=== PATIENT | male | born 1945 | race Caucasian/White ===

== ENCOUNTER 2016-10-02 12:25 | Emergency (ER) | payer MEDICARE ==
[~2016-10-02] VITALS: Ht 185.4 cm; Wt 118.2 kg
[2016-10-02 12:30] VITALS: BP 149/98; PULSE 83; RESP 15; O2SAT 97
--- NOTE | 2016-10-02 12:32 | ED.REPORT ---
HPI-Abd Pain M 40 and Over Date of Service Oct 02, 2016 ED Provider: Merced Graff History of Present Illness: right sided abd pain for 3 days. started sudden. no nausea or vomiting. able to eat. no change in pain with eating. [place] [facility] [place]. normally healthy. 10/09 pain Nursing Notes Stated Complaint: RT SIDE PAIN Chief Complaint: Male Abdominal Pain Nursing Notes Reviewed: Yes Allergies: Coded Allergies: No Known Allergies (Unverified , 10/02/16) Scheduled Atorvastatin (Lipitor) 40 Mg Tablet 40 MG PO DAILY Lisinopril / HCTZ 20-25 mg (Lisinopril / HCTZ 20-25 mg) 1 Each Tablet 1 EACH PO DAILY Metformin (Metformin) 850 Mg Tablet 850 MG PO BID General Time Seen by MD: 12:31 Chief Complaint Abdominal pain Hx Obtained From: Patient Sudden in Onset?: Yes Onset Occurred: 3 days ago Symptom Duration: Since onset Past Medical History Past Medical History diabetic for 4 years dx in 2012 Reports: Diabetes mellitus, Denies: Asthma Past Surgical History tibia 20 years ago Reports: Cataract surgery (2 months ago) Smoking History Former Smoker (quit 12 years ago 10/02/2016) Social History Alcohol Use: 1-3 per week Drug Use: Denies drug use Occupation lives with in 2 story house Ambulatory Status Independent Review of Systems Basic Review of Systems Eyes: Vision NL, No discharge Skin: No bruising, No rash, No itch Psychiatric: Normal thought content Physical Exam Initial Vital Signs Vital Signs (First) Date Time Temp Pulse Resp B/P Pulse Ox O2 Delivery O2 Flow Rate FiO2 10/02/16 12:30 36.8 83 15 149/98 97 Room Air Initial VS: Reviewed, Vital signs normal Head / Eyes: Atraumatic, Normocephalic, PERRL ENT: Mucous membranes moist, Conjunctiva normal, No scleral icterus Neck: Supple, Non-tender, Full range of motion Lymphatic: No lymphadenopathy Extremities: Vascular intact, Neuro intact, No swelling, No tenderness Skin: Warm, Dry, No cyanosis Neurologic: Alert, Oriented, Nonfocal Psychiatric: Mood/affect normal, Behavior normal, Normal thought content General/Constitutional: Awake, Alert, No acute distress, Well appearing, Well developed, Well hydrated, Well nourished, Cooperative, Not toxic appearing Respiratory / Chest: Atraumatic, Breath sounds NL, Breath sounds = bilat, No respiratory distress Cardiovascular: Heart rate NL, Regular rhythm, Heart sounds NL Tenderness/Guarding/Rebound: Positive: Tender flank R abd tenderness right mid stomach Back: Atraumatic, Inspection NL, Full range of motion Head / Eyes: Atraumatic, Normocephalic, PERRL, EOMI ENT: Atraumatic, Airway patent, Mucous membranes moist, Pharynx NL Interpretation & Diagnostics Lab Results Interpretation Result Diagram: 10/02/16 1339 10/02/16 1339 Test 10/02/16 13:39 White Blood Count 8.7th/mm3 (3.8-10.1) Red Blood Count 5.29mil/mm3 (4.40-5.80) Hemoglobin 16.1g/dL (13.8-17.2) Hematocrit 46.8% (41.0-50.0) Mean Corpuscular Volume 88.5fL (81-100) Mean Corpuscular Hemoglobin 30.4pg (27.0-35.0) Mean Corpuscular Hemoglobin Concent 34.4% (32.0-37.0) Red Cell Distribution Width 14.1% (12.3-15.4) Platelet Count 148bil/L (150-400) Neutrophils (%) (Auto) 72.6% (40-74) Lymphocytes (%) (Auto) 13.6% (14-46) Monocytes (%) (Auto) 10.9% (4-12) Eosinophils (%) (Auto) 2.6% (0-5) Basophils (%) (Auto) 0.2% (0-3) Sodium Level 138mEq/L (134-144) Potassium Level 4.5mEq/L (3.5-5.2) Chloride Level 102mEq/L (97-108) Carbon Dioxide Level 19mmol/L (18-29) Blood Urea Nitrogen 18mg/dL (8-27) Creatinine 1.26mg/dL (0.76-1.27) Estimat Glomerular Filtration Rate 60mL/min (>59) Glucose Level 106mg/dL (60-99) Lactic Acid Level 1.8mmol/L (0.4-2.0) Calcium Level 10.0mg/dL (8.5-10.1) Total Bilirubin 0.6mg/dL (0.0-1.2) Aspartate Amino Transf (AST/SGOT) 54U/L (0-50) Alanine Aminotransferase (ALT/SGPT) 72U/L (0-44) Alkaline Phosphatase 77U/L (25-160) Troponin T 0.010ug/L (0.0-0.011) Total Protein 7.3g/dL (6.4-8.4) Albumin 4.2g/dL (3.4-5.0) Amylase Level 62U/L (28-100) Lipase 55U/L (13-60) CT Abd / Pelvis Interpretation ROCEDURE: CT KUB ([id number]) INDICATIONS: right abd pain TECHNIQUE: Noncontrast 5 mm thick sections acquired from the diaphragms to the symphysis. 5 mm thick coronal and sagittal reformats were then performed. For radiation dose reduction, the following was used: automated exposure control, adjustment of mA and/or kV according to patient size. COMPARISON: None. FINDINGS: Image quality: Excellent. Lung bases: Lung bases are clear. There is a 7 mm subpleural pulmonary nodule in the posterior left lower lobe, image 5. Heart size is normal. Urinary system: Both kidneys are normal in size. The left kidney contains punctate nonobstructing calculi in the upper and lower poles and simple appearing cortical cysts. The right kidney is hydronephrotic secondary to a 4 mm obstructing calculus in the proximal ureter, attenuation 507. Both ureters are otherwise normal in course and caliber with no additional calculi. Urinary bladder is unremarkable Other solid organs: Liver and spleen are normal in size. Gallbladder appears clear. Pancreas is normal in contours. No adrenal nodules. Peritoneum and bowel: Unenhanced bowel loops demonstrate normal wall thickness and caliber. Normal appendix. No free fluid or air. Nodes and vessels: No retroperitoneal or mesenteric adenopathy by size criteria. Aorta and inferior vena cava are normal in caliber. Abdominal wall: No ventral hernias. Pelvis: No free pelvic fluid. No inguinal hernias or adenopathy. Bones: No suspicious bony lesions. No vertebral body compression fractures. IMPRESSION: 1. Right hydronephrosis secondary to an obstructing 4 mm calculus in the right ureter at the L4 level. 2. Left nephrolithiasis and renal cystic changes. 3. Atherosclerosis without aneurysm. 4. Nonspecific 6 mm subpleural nodule in the left lower lobe for which noncontrast CT chest imaging in 3-6 months is suggested. Dictated by: Yusuf Whitman M.D. on 10/02/2016 at 13:23 Approved by: Yusuf Whitman M.D. on 10/02/2016 at 13:32 Re-Eval/Medical Decision Med Decision/Clinical Course 70 year old male presents for evualation of right mid abd pain with sudden onset. Denies nausea and vomiting. CT shows a 4 mm obstruction stone. Patient with good pain control, no nausea. discharged in stable condition with instructions to push fluid. No sign of any abscess Discharge & Departure Primary Impression: Ureter, calculus Additional Impression: Pulmonary nodule, left Disposition: Home Vital Signs - All Vital Signs Date Time Temp Pulse Resp B/P Pulse Ox O2 Delivery O2 Flow Rate FiO2 10/02/16 16:10 76 16 137/90 95 Room Air 10/02/16 15:13 80 16 118/68 93 Room Air 10/02/16 13:44 81 16 139/91 98 Room Air 10/02/16 12:30 36.8 83 15 149/98 97 Room Air Patient Instructions: Pulmonary Nodules (ED), Ureteral Stones (ED), Ureteroscopy (DC) Additional Instructions: The CT shows a 4 mm stone blocking the right ureter. Continue with fluids and oral pain management, ibuprofen and percocet. Also flomax to try and help move the stone along. The CT also show a small subpleural nodule about 6mm in size. Radiology is recommending a non contrast chest imaging in 3 to 6 months. Please follow with Dr. Bledsoe. If vomiting, unable to keep pain medications down, return to the ER. It is much better to pass the stone by yourself than having a stent placed. It can some times take up to a week. Continue with straining your urine. Referrals: Alex Johnson MD (PCP) Ally Bledsoe MD EDSupervising Provider for APC: Tom Jeffery MD copies to: Ally Bledsoe MD; Alex Johnson MD, Sue ARNP Oct 02, 2016 12:32
[2016-10-02] MEDS ORDERED: LIP40 PO (12:33)
[2016-10-02] MEDS ORDERED: LISI1TAB11 PO (12:33)
[2016-10-02] MEDS ORDERED: METF850T2 PO (12:33)
[2016-10-02] MEDS ORDERED: 0.9% Sodium Chloride 1,000 ML IV ONE ×2 (12:45→14:25)
[2016-10-02] MEDS ORDERED: Ondansetron 2 mg/mL 2 mL Inj IVPUSH ONE (12:45)
[2016-10-02] MEDS ORDERED: HYDROmorphone 0.5 mg/0.5 mL iSecure Syringe IVPUSH ONE (12:45)
[2016-10-02] MEDS: HYDROmorphone 0.5 mg/0.5 mL iSecure Syringe IVPUSH PRN ×2 (13:13→13:43)
--- NOTE | 2016-10-02 13:34 | DRSVH ---
PROCEDURE: CT KUB ([id number]) INDICATIONS: right abd pain TECHNIQUE: Noncontrast 5 mm thick sections acquired from the diaphragms to the symphysis. 5 mm thick coronal an d sagittal reformats were then performed. For radiation dose reduction, the following was used: aut omated exposure control, adjustment of mA and/or kV according to patient size. COMPARISON: None. FINDINGS: Image quality: Excellent. Lung bases: Lung bases are clear. There is a 7 mm subpleural pulmonary nodule in the posterior left lower lobe, image 5. Heart size is normal. Urinary system: Both kidneys are normal in size. The left kidney contains punctate nonobstructing ca lculi in the upper and lower poles and simple appearing cortical cysts. The right kidney is hydroneph rotic secondary to a 4 mm obstructing calculus in the proximal ureter, attenuation 507. Both ureters are otherwise normal in course and caliber with no additional calculi. Urinary bladder is unremarkabl e Other solid organs: Liver and spleen are normal in size. Gallbladder appears clear. Pancreas is no rmal in contours. No adrenal nodules. Peritoneum and bowel: Unenhanced bowel loops demonstrate normal wall thickness and caliber. Normal a ppendix. No free fluid or air. Nodes and vessels: No retroperitoneal or mesenteric adenopathy by size criteria. Aorta and inferior vena cava are normal in caliber. Abdominal wall: No ventral hernias. Pelvis: No free pelvic fluid. No inguinal hernias or adenopathy. Bones: No suspicious bony lesions. No vertebral body compression fractures. IMPRESSION: 1. Right hydronephrosis secondary to an obstructing 4 mm calculus in the right ureter at the L4 level . 2. Left nephrolithiasis and renal cystic changes. 3. Atherosclerosis without aneurysm. 4. Nonspecific 6 mm subpleural nodule in the left lower lobe for which noncontrast CT chest imaging i n 3-6 months is suggested. Dictated by: Yusuf Whitman M.D. on 10/02/2016 at 13:23 Approved by: Yusuf Whitman M.D. on 10/02/2016 at 13:32
[2016-10-02 13:44] VITALS: BP 139/91; PULSE 81; RESP 16; O2SAT 98
[2016-10-02 13:45] LABS: BASOPHILS % (AUTO) 0.2 % (0-3)
[2016-10-02 13:54] LABS: EOSINOPHILS % (AUTO) 2.6 % (0-5); MONOCYTES % (AUTO) 10.9 % (4-12); Mean Corpuscular Hemoglobin 30.4 pg (27.0-35.0); Mean Corpuscular Volume 88.5 fL (81-100); NEUTROPHILS % (AUTO) 72.6 % (40-74); Platelet Count 148 bil/L (150-400)
[2016-10-02] MEDS ORDERED: oxyCODONE-Acetamin 10-325 mg Tablet PO ONE (14:25)
[2016-10-02 14:28] LABS: TROPONIN T 0.01 ug/L (0.0-0.011)
[2016-10-02 15:13] VITALS: BP 118/68; PULSE 80; RESP 16; O2SAT 93
[2016-10-02 16:10] VITALS: BP 137/90; PULSE 76; RESP 16; O2SAT 95
== END 2016-10-02 16:17 | disposition home or self-care (01) ==
LOC: SED 12:25
DX: N20.1 Calculus of ureter (principal); R91.1 Solitary pulmonary nodule; E11.9 Type 2 diabetes mellitus without complications; Z87.891 Personal history of nicotine dependence; Z79.84 Long term (current) use of oral hypoglycemic drugs
CPT/HCPCS: 36415; 74176; 80053; 82150; 83605; 83690; 84484; 85025; 93005; 96361; 96374; 96375; 96376; 99285; J1170; J1885; J2270; J2405; J7030